=== PATIENT | male | born 1975 | race Caucasian/White ===

== ENCOUNTER 2021-06-17 16:50 | Inpatient (IN) | payer SELFPAY ==
[~2021-06-17] VITALS: Ht 190.5 cm; Wt 104.3 kg
[2021-06-17] MEDS ORDERED: ONDANSETRON HCL INJ 2MG/ML 2ML 2 MG/ML VIAL IV STA (17:10)
[2021-06-17] MEDS ORDERED: Morphine 4mg Syringe 4 MG/ML INJ IV STA (17:10)
[2021-06-17] MEDS ORDERED: SODIUM CHLORIDE 0.9% 1000ML 1,000 ML IV STA (17:10)
[2021-06-17] MEDS ORDERED: PIPERACILLIN/TAZOBACTAM 3.375 GM in SODIUM CHLORIDE 0.9% 50ML 50 ML IV STA (17:10)
[2021-06-17 17:21] LABS: BASOPHILS # (AUTO) 0.1 (0.0-0.1); BASOPHILS % 0.4 % (0.0-1.0); EOSINOPHILS # (AUTO) 0.1 (0.0-0.4); EOSINOPHILS % 0.3 % (0.0-6.0); HEMATOCRIT 44.8 % (38.2-49.6); HEMOGLOBIN 15.8 g/dL (14.0-18.0); LYMPHOCYTES # (AUTO) 1.9 (1.0-3.2); LYMPHOCYTES % 12.3 % (18.0-39.1); MEAN CORPUSCULAR HEMOGLOBIN 30.6 pg (28-32); MEAN CORPUSCULAR HGB CONC 35.3 g/dL (31-35); MEAN CORPUSCULAR VOLUME 86.8 fL (81-99); MONOCYTES # (AUTO) 1.4 (0.2-0.8); MONOCYTES % 9.1 % (4.4-11.3); NEUTROPHILS # (AUTO) 11.9 (2.1-6.9); NEUTROPHILS % 77.3 % (38.7-80.0); PLATELET COUNT 278 x10e3/uL (140-360); RED BLOOD COUNT 5.16 x10e6/uL (4.3-5.7); RED CELL DISTRIBUTION WIDTH 11.2 % (11.7-14.4)
[2021-06-17 17:40] LABS: INR 1.05; PROTHROMBIN TIME 14.5 seconds (11.9-14.5)
[2021-06-17 17:47] LABS: ALBUMIN 3.7 g/dL (3.5-5.0); ALBUMIN/GLOBULIN RATIO 0.9 (0.8-2.0); ANION GAP 17.2 mmol/L (8-16); CALCIUM 9.3 mg/dL (8.4-10.2); CREATININE, SERUM 1.03 mg/dL (0.72-1.25); POTASSIUM 4.2 mmol/L (3.5-5.1)
[2021-06-17] MEDS ORDERED: Vancomycin IV 1 GM in SODIUM CHLORIDE 0.9% 250ML 250 ML IV ONE (18:00)
[2021-06-17] MEDS ORDERED: HYDROCODONE/APAP 5MG-325MG TAB PO ONE (18:00)
[2021-06-17] MEDS ORDERED: Morphine 4mg Syringe 4 MG/ML INJ IV PRN (19:15)
[2021-06-17] MEDS ORDERED: DEXTROSE 50% SYRINGE 50 ML IV PRN (19:15)
[2021-06-17] MEDS ORDERED: ONDANSETRON HCL INJ 2MG/ML 2ML 2 MG/ML VIAL IV PRN (19:15)
[2021-06-17 23:00] VITALS: BP 142/85
[2021-06-17] MEDS: INSULIN REGULAR, HUMAN 100 UNIT/1 ML SQ SCH (23:21)
[2021-06-18] VITALS (7 sets, daily range): BP systolic 129–160; BP diastolic 64–95
[2021-06-18] MEDS: PIPERACILLIN/TAZOBACTAM 3.375 GM in SODIUM CHLORIDE 0.9% 50ML 50 ML IV SCH ×3 (01:02→17:00)
[2021-06-18] MEDS: Vancomycin IV 1 GM in SODIUM CHLORIDE 0.9% 250ML 250 ML IV SCH ×2 (07:00→18:53)
[2021-06-18 07:24] LABS: BASOPHILS % 0.4 % (0.0-1.0); EOSINOPHILS # (AUTO) 0.1 (0.0-0.4); EOSINOPHILS % 0.8 % (0.0-6.0); HEMATOCRIT 42.2 % (38.2-49.6); HEMOGLOBIN 14.8 g/dL (14.0-18.0); LYMPHOCYTES # (AUTO) 1.2 (1.0-3.2); LYMPHOCYTES % 11.3 % (18.0-39.1); MEAN CORPUSCULAR HGB CONC 35.1 g/dL (31-35); MEAN CORPUSCULAR VOLUME 88.5 fL (81-99); MONOCYTES # (AUTO) 1.2 (0.2-0.8); MONOCYTES % 11.2 % (4.4-11.3); NEUTROPHILS # (AUTO) 8.1 (2.1-6.9); NEUTROPHILS % 75.7 % (38.7-80.0); PLATELET COUNT 265 x10e3/uL (140-360); RED BLOOD COUNT 4.77 x10e6/uL (4.3-5.7); RED CELL DISTRIBUTION WIDTH 11.2 % (11.7-14.4)
[2021-06-18] MEDS: INSULIN REGULAR, HUMAN 100 UNIT/1 ML SQ SCH (07:30)
[2021-06-18 07:46] LABS: ALBUMIN 3.1 g/dL (3.5-5.0); ALBUMIN/GLOBULIN RATIO 0.8 (0.8-2.0); CALCIUM 8.6 mg/dL (8.4-10.2); CREATININE, SERUM 0.97 mg/dL (0.72-1.25)
[2021-06-18] MEDS ORDERED: DEXTROSE 50% SYRINGE 50 ML IV PRN (10:30)
[2021-06-18 10:58] LABS: CHOL/HDL RATIO 3.3 (3.9-4.7)
[2021-06-18] MEDS: INSULIN LISPRO 100 UNIT/1 ML 3ML VIAL SQ SCH ×3 (11:30→20:56)
[2021-06-18] MEDS: ACETAMINOPHEN 325 MG TAB PO PRN (14:39)
[2021-06-18] MEDS ORDERED: POVIDONE IODINE 10% 120 ML BTL EXT PRN (18:15)
[2021-06-18] MEDS: HYDROCODONE/APAP 5MG-325MG TAB PO PRN (22:30)
[2021-06-19] VITALS (8 sets, daily range): BP systolic 149–180; BP diastolic 79–93
[2021-06-19] MEDS: CLONIDINE HCL 0.1 MG TAB PO PRN ×2 (01:00→16:32)
[2021-06-19] MEDS: PIPERACILLIN/TAZOBACTAM 3.375 GM in SODIUM CHLORIDE 0.9% 50ML 50 ML IV SCH ×3 (01:00→16:57)
[2021-06-19 06:15] LABS: BASOPHILS # (AUTO) 0.1 (0.0-0.1); BASOPHILS % 0.5 % (0.0-1.0); EOSINOPHILS # (AUTO) 0.2 (0.0-0.4); EOSINOPHILS % 1.5 % (0.0-6.0); HEMATOCRIT 40.4 % (38.2-49.6); HEMOGLOBIN 14.1 g/dL (14.0-18.0); LYMPHOCYTES # (AUTO) 1.5 (1.0-3.2); LYMPHOCYTES % 13.9 % (18.0-39.1); MEAN CORPUSCULAR HEMOGLOBIN 30.7 pg (28-32); MEAN CORPUSCULAR HGB CONC 34.9 g/dL (31-35); MEAN CORPUSCULAR VOLUME 87.8 fL (81-99); MONOCYTES # (AUTO) 1.1 (0.2-0.8); MONOCYTES % 9.8 % (4.4-11.3); NEUTROPHILS # (AUTO) 7.9 (2.1-6.9); PLATELET COUNT 286 x10e3/uL (140-360); RED CELL DISTRIBUTION WIDTH 11.1 % (11.7-14.4)
[2021-06-19 06:31] LABS: ANION GAP 13.1 mmol/L (8-16); CALCIUM 8.5 mg/dL (8.4-10.2); CREATININE, SERUM 0.89 mg/dL (0.72-1.25); POTASSIUM 4.1 mmol/L (3.5-5.1)
[2021-06-19] MEDS: Vancomycin IV 1 GM in SODIUM CHLORIDE 0.9% 250ML 250 ML IV SCH ×2 (06:37→18:29)
[2021-06-19] MEDS: INSULIN LISPRO 100 UNIT/1 ML 3ML VIAL SQ SCH ×4 (07:30→20:45)
[2021-06-19] MEDS: INSULIN GLARGINE 100 UNITS/ML VIAL SQ SCH (20:45)
[2021-06-19] MEDS: ACETAMINOPHEN 325 MG TAB PO PRN (20:51)
[2021-06-20] VITALS (8 sets, daily range): BP systolic 132–175; BP diastolic 77–95
[2021-06-20] MEDS: PIPERACILLIN/TAZOBACTAM 3.375 GM in SODIUM CHLORIDE 0.9% 50ML 50 ML IV SCH ×3 (00:40→17:49)
[2021-06-20] MEDS ORDERED: Vancomycin IV 1 GM VIAL ONE (05:28)
[2021-06-20] MEDS: Vancomycin IV 1 GM in SODIUM CHLORIDE 0.9% 250ML 250 ML IV SCH ×2 (06:17→19:00)
[2021-06-20] MEDS: INSULIN LISPRO 100 UNIT/1 ML 3ML VIAL SQ SCH ×4 (07:30→21:00)
[2021-06-20] MEDS: HYDROCODONE/APAP 5MG-325MG TAB PO PRN (12:47)
[2021-06-20] MEDS ORDERED: ONDANSETRON HCL 4 MG ORAL DISINTEGRATING TAB PO PRN (19:45)
[2021-06-20] MEDS: INSULIN GLARGINE 100 UNITS/ML VIAL SQ SCH (21:00)
[2021-06-20] MEDS: CLONIDINE HCL 0.1 MG TAB PO PRN (21:06)
[2021-06-20] MEDS: ACETAMINOPHEN 325 MG TAB PO PRN (21:06)
[2021-06-21] MEDS: PIPERACILLIN/TAZOBACTAM 3.375 GM in SODIUM CHLORIDE 0.9% 50ML 50 ML IV SCH ×2 (00:41→09:47)
[2021-06-21 01:00] VITALS: BP 152/72
[2021-06-21 04:43] VITALS: BP 154/78
[2021-06-21] MEDS: INSULIN LISPRO 100 UNIT/1 ML 3ML VIAL SQ SCH ×2 (07:30→11:30)
[2021-06-21] MEDS: Vancomycin IV 1 GM in SODIUM CHLORIDE 0.9% 250ML 250 ML IV SCH (07:40)
[2021-06-21 08:33] VITALS: BP 151/77
[2021-06-21 09:00] VITALS: BP 151/77
[2021-06-21] MEDS ORDERED: CIPRO500 MG PO (11:43)
[2021-06-21] MEDS ORDERED: DOXYCYCLINE HY100 MG PO (11:43)
[2021-06-21 12:06] VITALS: BP 178/92
== END 2021-06-21 12:56 | disposition home or self-care (01) | DRG 638 ==
LOC: ER 18:11 → ERHOLD 19:04 → MED/SURG2 23:23
PROVIDERS: ADMIT Family Medicine; ATTEND Family Medicine
PROC: 0J9Q0ZZ Drainage of Right Foot Subcutaneous Tissue and Fascia, Open Approach (ICD-10-PCS; principal; 2021-06-20)
DX: E11.69 Type 2 diabetes mellitus with other specified complication (principal); M86.8X7 Other osteomyelitis, ankle and foot; L97.518 Non-pressure chronic ulcer of other part of right foot with other specified severity; Z79.899 Other long term (current) drug therapy; E78.5 Hyperlipidemia, unspecified; I10 Essential (primary) hypertension; Z20.822 Contact with and (suspected) exposure to COVID-19; F17.220 Nicotine dependence, chewing tobacco, uncomplicated; E11.621 Type 2 diabetes mellitus with foot ulcer; E11.65 Type 2 diabetes mellitus with hyperglycemia; F15.11 Other stimulant abuse, in remission
CPT/HCPCS: 36415; 80048; 80053; 80061; 80202; 82948; 83036; 83605; 85025; 85610; 85730; 87040; 87071; 87186; 87205; 93005; 94799; 99284; J2270; J2405; J2543; J3370; J7030; J7050; U0002

== ENCOUNTER 2021-09-19 01:51 | Inpatient (IN) | payer SELFPAY ==
[2021-09-19] VITALS (9 sets, daily range): BP systolic 137–169; BP diastolic 80–98
[~2021-09-19] VITALS: Ht 190.5 cm; Wt 104.3 kg
[~2021-09-19 01:51] MED LIST: CIPRO500 MG PO; DOXYCYCLINE HY100 MG PO
[2021-09-19] MEDS ORDERED: Vancomycin IV 1 GM in SODIUM CHLORIDE 0.9% 250ML 250 ML IV STA (02:09)
[2021-09-19] MEDS ORDERED: PIPERACILLIN/TAZOBACTAM 3.375 GM in SODIUM CHLORIDE 0.9% 50ML 50 ML IV STA (02:09)
[2021-09-19] MEDS ORDERED: SODIUM CHLORIDE 0.9% 1000ML 1,000 ML IV STA (02:09)
[2021-09-19] MEDS ORDERED: KETOROLAC TROMETHAMINE 30 MG/ML VIAL IV STA (02:12)
[2021-09-19 02:27] LABS: BASOPHILS # (AUTO) 0.1 (0.0-0.1); BASOPHILS % 0.5 % (0.0-1.0); EOSINOPHILS # (AUTO) 0.1 (0.0-0.4); EOSINOPHILS % 0.3 % (0.0-6.0); HEMATOCRIT 43.1 % (38.2-49.6); HEMOGLOBIN 15.6 g/dL (14.0-18.0); LYMPHOCYTES # (AUTO) 1.5 (1.0-3.2); LYMPHOCYTES % 8.6 % (18.0-39.1); MEAN CORPUSCULAR HEMOGLOBIN 31.4 pg (28-32); MEAN CORPUSCULAR HGB CONC 36.2 g/dL (31-35); MEAN CORPUSCULAR VOLUME 86.7 fL (81-99); MONOCYTES # (AUTO) 1.1 (0.2-0.8); MONOCYTES % 6.4 % (4.4-11.3); NEUTROPHILS # (AUTO) 14.5 (2.1-6.9); NEUTROPHILS % 83.9 % (38.7-80.0); PLATELET COUNT 405 x10e3/uL (140-360); RED BLOOD COUNT 4.97 x10e6/uL (4.3-5.7); RED CELL DISTRIBUTION WIDTH 11.6 % (11.7-14.4)
[2021-09-19 02:38] LABS: ALBUMIN 3.2 g/dL (3.5-5.0); ALBUMIN/GLOBULIN RATIO 0.7 (0.8-2.0); ANION GAP 15.8 mmol/L (8-16); CALCIUM 9.2 mg/dL (8.4-10.2); CREATININE, SERUM 1.2 mg/dL (0.72-1.25); POTASSIUM 3.8 mmol/L (3.5-5.1)
[2021-09-19] MEDS ORDERED: ACETAMINOPHEN 325 MG TAB PO ONE (03:00)
[2021-09-19] MEDS ORDERED: ONDANSETRON HCL INJ 2MG/ML 2ML 2 MG/ML VIAL IV PRN (03:30)
[2021-09-19] MEDS: SODIUM CHLORIDE 0.9% 1000ML 1,000 ML IV SCH ×2 (03:50→12:48)
[2021-09-19 09:36] LABS: CLARITY,URINE CLEAR (CLEAR); COLOR,URINE YELLOW (YELLOW); KETONES,URINE NEGATIVE (NEGATIVE); LEUKOCYTE ESTERASE ,URINE NEGATIVE (NEGATIVE); NITRITE,URINE NEGATIVE (NEGATIVE); PROTEIN,URINE DIPSTICK NEGATIVE (NEGATIVE); URINE UROBILINOGEN 0.2 mg/dL (0.2 - 1)
[2021-09-19] MEDS ORDERED: Vancomycin IV 500 MG in SODIUM CHLORIDE 0.9% 100 ML IV SCH (10:15)
[2021-09-19 10:19] LABS: BACTERIA,URINE FEW /HPF; EPITHELIAL CELLS,URINE FEW /LPF; RBC,URINE 0-5 /HPF (0-5); WBC,URINE (MAN) 0-5 /HPF (0-5)
[2021-09-19] MEDS ORDERED: DEXTROSE 50% SYRINGE 50 ML IV PRN (10:45)
[2021-09-19] MEDS ORDERED: Vancomycin IV 1 GM in SODIUM CHLORIDE 0.9% 250ML 250 ML IV SCH (11:00)
[2021-09-19] MEDS: INSULIN LISPRO 100 UNIT/1 ML 3ML VIAL SQ SCH ×3 (11:30→21:00)
[2021-09-19] MEDS ORDERED: GADOBENATE DIMEGLUMINE 1 ML IV ONE (13:43)
[2021-09-19] MEDS: CEFEPIME 1 GM in SODIUM CHLORIDE 0.9% 50ML 50 ML IV SCH ×2 (14:00→22:28)
[2021-09-19] MEDS: Vancomycin IV 1 GM in SODIUM CHLORIDE 0.9% 250ML 250 ML IV SCH (15:30)
[2021-09-19] MEDS: INSULIN GLARGINE 100 UNITS/ML VIAL SQ SCH (21:00)
[2021-09-20] MEDS: SODIUM CHLORIDE 0.9% 1000ML 1,000 ML IV SCH ×4 (01:42→18:30)
[2021-09-20] MEDS: Vancomycin IV 1 GM in SODIUM CHLORIDE 0.9% 250ML 250 ML IV SCH ×2 (03:27→15:13)
[2021-09-20 03:53] VITALS: BP 164/91
[2021-09-20] MEDS: KETOROLAC TROMETHAMINE 30 MG/ML VIAL IV PRN (04:31)
[2021-09-20 05:53] LABS: BASOPHILS # (AUTO) 0.1 (0.0-0.1); BASOPHILS % 0.4 % (0.0-1.0); EOSINOPHILS # (AUTO) 0.2 (0.0-0.4); EOSINOPHILS % 1.4 % (0.0-6.0); HEMATOCRIT 39.2 % (38.2-49.6); HEMOGLOBIN 14.1 g/dL (14.0-18.0); LYMPHOCYTES # (AUTO) 1.6 (1.0-3.2); LYMPHOCYTES % 12.1 % (18.0-39.1); MEAN CORPUSCULAR HEMOGLOBIN 31.1 pg (28-32); MEAN CORPUSCULAR VOLUME 86.5 fL (81-99); MONOCYTES % 7.1 % (4.4-11.3); NEUTROPHILS # (AUTO) 10.6 (2.1-6.9); NEUTROPHILS % 78.4 % (38.7-80.0); PLATELET COUNT 338 x10e3/uL (140-360); RED BLOOD COUNT 4.53 x10e6/uL (4.3-5.7); RED CELL DISTRIBUTION WIDTH 11.1 % (11.7-14.4)
[2021-09-20] MEDS: CEFEPIME 1 GM in SODIUM CHLORIDE 0.9% 50ML 50 ML IV SCH ×3 (06:00→21:01)
[2021-09-20 06:15] LABS: ANION GAP 12.7 mmol/L (8-16); CALCIUM 8.2 mg/dL (8.4-10.2); CREATININE, SERUM 0.84 mg/dL (0.72-1.25); POTASSIUM 3.7 mmol/L (3.5-5.1)
[2021-09-20] MEDS: DOCUSATE SODIUM 100 MG CAP PO SCH (08:31)
[2021-09-20] MEDS: SENNOSIDES 8.6 MG TAB PO SCH (08:31)
[2021-09-20 09:00] VITALS: BP 143/76
[2021-09-20] MEDS: LOSARTAN POTASSIUM 25 MG TAB PO SCH (10:17)
[2021-09-20] MEDS: INSULIN LISPRO 100 UNIT/1 ML 3ML VIAL SQ SCH ×4 (10:17→20:40)
[2021-09-20 12:22] VITALS: BP 141/77
[2021-09-20] MEDS: ENOXAPARIN SOD INJ 40 MG/0.4 ML SYR SC SCH (16:53)
[2021-09-20 17:07] VITALS: BP 153/86
[2021-09-20 20:00] VITALS: BP 152/87
[2021-09-20 21:00] VITALS: BP 152/87
[2021-09-20] MEDS: INSULIN GLARGINE 100 UNITS/ML VIAL SQ SCH (21:01)
[2021-09-21] VITALS (7 sets, daily range): BP systolic 147–166; BP diastolic 78–93
[2021-09-21] MEDS: KETOROLAC TROMETHAMINE 30 MG/ML VIAL IV PRN ×2 (02:44→17:36)
[2021-09-21 02:56] LABS: BASOPHILS # (AUTO) 0.1 (0.0-0.1); BASOPHILS % 0.5 % (0.0-1.0); EOSINOPHILS # (AUTO) 0.3 (0.0-0.4); EOSINOPHILS % 2.3 % (0.0-6.0); HEMATOCRIT 37.7 % (38.2-49.6); HEMOGLOBIN 13.9 g/dL (14.0-18.0); LYMPHOCYTES # (AUTO) 1.5 (1.0-3.2); LYMPHOCYTES % 13.4 % (18.0-39.1); MEAN CORPUSCULAR HEMOGLOBIN 31.6 pg (28-32); MEAN CORPUSCULAR HGB CONC 36.9 g/dL (31-35); MEAN CORPUSCULAR VOLUME 85.7 fL (81-99); MONOCYTES # (AUTO) 0.8 (0.2-0.8); MONOCYTES % 6.9 % (4.4-11.3); NEUTROPHILS # (AUTO) 8.6 (2.1-6.9); NEUTROPHILS % 76.5 % (38.7-80.0); PLATELET COUNT 359 x10e3/uL (140-360); RED CELL DISTRIBUTION WIDTH 11.2 % (11.7-14.4)
[2021-09-21] MEDS: Vancomycin IV 1 GM in SODIUM CHLORIDE 0.9% 250ML 250 ML IV SCH (03:10)
[2021-09-21] MEDS: SODIUM CHLORIDE 0.9% 1000ML 1,000 ML IV SCH ×3 (03:11→18:48)
[2021-09-21 03:16] LABS: ANION GAP 12.9 mmol/L (8-16); CALCIUM 8.2 mg/dL (8.4-10.2); CREATININE, SERUM 0.81 mg/dL (0.72-1.25); POTASSIUM 3.9 mmol/L (3.5-5.1)
[2021-09-21] MEDS: CEFEPIME 1 GM in SODIUM CHLORIDE 0.9% 50ML 50 ML IV SCH ×3 (05:17→22:15)
[2021-09-21] MEDS: HYDRALAZINE HCL 20 MG/ML VIAL IV PRN ×2 (06:21→13:13)
[2021-09-21] MEDS: INSULIN LISPRO 100 UNIT/1 ML 3ML VIAL SQ SCH ×4 (08:15→22:46)
[2021-09-21] MEDS: LOSARTAN POTASSIUM 25 MG TAB PO SCH (08:41)
[2021-09-21] MEDS: SENNOSIDES 8.6 MG TAB PO SCH (08:41)
[2021-09-21] MEDS: DOCUSATE SODIUM 100 MG CAP PO SCH (08:41)
[2021-09-21] MEDS ORDERED: Vancomycin IV 1 GM in SODIUM CHLORIDE 0.9% 250ML 250 ML IV SCH (15:00)
[2021-09-21] MEDS ORDERED: Vancomycin IV 1.5 GM in SODIUM CHLORIDE 0.9% 250ML 300 ML IV SCH (15:00)
[2021-09-21] MEDS: ENOXAPARIN SOD INJ 40 MG/0.4 ML SYR SC SCH (16:46)
[2021-09-21] MEDS: INSULIN GLARGINE 100 UNITS/ML VIAL SQ SCH (22:47)
[2021-09-22] VITALS (7 sets, daily range): BP systolic 137–177; BP diastolic 70–98
[2021-09-22] MEDS: KETOROLAC TROMETHAMINE 30 MG/ML VIAL IV PRN ×2 (02:00→13:29)
[2021-09-22] MEDS: SODIUM CHLORIDE 0.9% 1000ML 1,000 ML IV SCH ×3 (04:04→21:30)
[2021-09-22] MEDS: CEFEPIME 1 GM in SODIUM CHLORIDE 0.9% 50ML 50 ML IV SCH ×3 (05:30→21:31)
[2021-09-22 06:14] LABS: BASOPHILS # (AUTO) 0.1 (0.0-0.1); BASOPHILS % 0.5 % (0.0-1.0); EOSINOPHILS # (AUTO) 0.3 (0.0-0.4); EOSINOPHILS % 3.4 % (0.0-6.0); HEMATOCRIT 37.2 % (38.2-49.6); HEMOGLOBIN 13.4 g/dL (14.0-18.0); LYMPHOCYTES # (AUTO) 1.4 (1.0-3.2); LYMPHOCYTES % 15.3 % (18.0-39.1); MEAN CORPUSCULAR HEMOGLOBIN 30.9 pg (28-32); MEAN CORPUSCULAR VOLUME 85.7 fL (81-99); MONOCYTES # (AUTO) 0.9 (0.2-0.8); MONOCYTES % 9.1 % (4.4-11.3); NEUTROPHILS # (AUTO) 6.6 (2.1-6.9); NEUTROPHILS % 70.7 % (38.7-80.0); PLATELET COUNT 359 x10e3/uL (140-360); RED BLOOD COUNT 4.34 x10e6/uL (4.3-5.7)
[2021-09-22 06:42] LABS: ANION GAP 11.1 mmol/L (8-16); CALCIUM 8.5 mg/dL (8.4-10.2); CREATININE, SERUM 0.95 mg/dL (0.72-1.25); POTASSIUM 4.1 mmol/L (3.5-5.1)
[2021-09-22] MEDS: INSULIN LISPRO 100 UNIT/1 ML 3ML VIAL SQ SCH ×4 (07:30→21:31)
[2021-09-22] MEDS: SENNOSIDES 8.6 MG TAB PO SCH (09:00)
[2021-09-22] MEDS: LOSARTAN POTASSIUM 25 MG TAB PO SCH (09:00)
[2021-09-22] MEDS: DOCUSATE SODIUM 100 MG CAP PO SCH (09:00)
[2021-09-22] MEDS: Vancomycin IV 1.25 GM in SODIUM CHLORIDE 0.9% 250ML 250 ML IV SCH ×3 (12:00)
[2021-09-22] MEDS: ENOXAPARIN SOD INJ 40 MG/0.4 ML SYR SC SCH (17:00)
[2021-09-22] MEDS: INSULIN GLARGINE 100 UNITS/ML VIAL SQ SCH (21:31)
[2021-09-23] VITALS (9 sets, daily range): BP systolic 127–157; BP diastolic 71–93
[2021-09-23] MEDS: Vancomycin IV 1.25 GM in SODIUM CHLORIDE 0.9% 250ML 250 ML IV SCH ×2 (00:03→15:34)
[2021-09-23] MEDS: SODIUM CHLORIDE 0.9% 1000ML 1,000 ML IV SCH ×2 (03:32→22:30)
[2021-09-23] MEDS: CEFEPIME 1 GM in SODIUM CHLORIDE 0.9% 50ML 50 ML IV SCH ×3 (05:56→22:15)
[2021-09-23] MEDS: KETOROLAC TROMETHAMINE 30 MG/ML VIAL IV PRN (06:05)
[2021-09-23] MEDS: INSULIN LISPRO 100 UNIT/1 ML 3ML VIAL SQ SCH ×4 (08:58→21:00)
[2021-09-23] MEDS: DOCUSATE SODIUM 100 MG CAP PO SCH (09:00)
[2021-09-23] MEDS: SENNOSIDES 8.6 MG TAB PO SCH (09:00)
[2021-09-23] MEDS: LOSARTAN POTASSIUM 25 MG TAB PO SCH (09:00)
[2021-09-23] MEDS ORDERED: BUPIVACAINE HCL 0.5% INJ 30 ML VIAL INJ ONE (09:03)
[2021-09-23] MEDS ORDERED: DEXAMETHASONE SOD PHOS INJ 4 MG/ML SDV ONE (09:04)
[2021-09-23] MEDS ORDERED: ACETAMINOPHEN 1000 MG/100 ML 100 ML IV ONE (10:37)
[2021-09-23] MEDS ORDERED: FAMOTIDINE 20 MG/2 ML VIAL IV ONE (10:37)
[2021-09-23] MEDS ORDERED: POVIDONE IODINE 0.05% 0.05 % ML PO ONE (11:59)
[2021-09-23] MEDS ORDERED: LIDOCAINE HCL 2% LOCAL INJ 5 ML SDV VIAL INJ ONE (11:59)
[2021-09-23] MEDS ORDERED: PROPOFOL IV EMULSION 10 MG/ML 20 ML VIAL ONE (11:59)
[2021-09-23] MEDS ORDERED: SEVOFLURANE INHAL SOLN 250 ML PEN BTL ONE (11:59)
[2021-09-23] MEDS ORDERED: ONDANSETRON HCL INJ 2MG/ML 2ML 2 MG/ML VIAL ONE (11:59)
[2021-09-23] MEDS ORDERED: EPHEDRINE SULFATE INJ 50 MG/ML VIAL ONE (11:59)
[2021-09-23] MEDS ORDERED: MIDAZOLAM HCL 2 MG/2 ML VIAL ONE (13:54)
[2021-09-23] MEDS ORDERED: FENTANYL CITRATE/PF 100MCG/2 ML INJ ONE (13:54)
[2021-09-23] MEDS: ENOXAPARIN SOD INJ 40 MG/0.4 ML SYR SC SCH (17:00)
[2021-09-23] MEDS: INSULIN GLARGINE 100 UNITS/ML VIAL SQ SCH (21:00)
[2021-09-24] VITALS (7 sets, daily range): BP systolic 152–168; BP diastolic 64–95
[2021-09-24] MEDS: Vancomycin IV 1.25 GM in SODIUM CHLORIDE 0.9% 250ML 250 ML IV SCH ×2 (02:30→14:30)
[2021-09-24] MEDS: SODIUM CHLORIDE 0.9% 1000ML 1,000 ML IV SCH ×2 (03:30→05:00)
[2021-09-24] MEDS: CEFEPIME 1 GM in SODIUM CHLORIDE 0.9% 50ML 50 ML IV SCH ×3 (06:28→21:19)
[2021-09-24] MEDS: INSULIN LISPRO 100 UNIT/1 ML 3ML VIAL SQ SCH ×5 (07:30→21:00)
[2021-09-24] MEDS: DOCUSATE SODIUM 100 MG CAP PO SCH (09:00)
[2021-09-24] MEDS: SENNOSIDES 8.6 MG TAB PO SCH (09:00)
[2021-09-24] MEDS: LOSARTAN POTASSIUM 25 MG TAB PO SCH (09:00)
[2021-09-24] MEDS ORDERED: ACETAMINOPHEN 325 MG TAB PO PRN (13:15)
[2021-09-24] MEDS: ENOXAPARIN SOD INJ 40 MG/0.4 ML SYR SC SCH (17:00)
[2021-09-24] MEDS: INSULIN GLARGINE 100 UNITS/ML VIAL SQ SCH (21:00)
[2021-09-24] MEDS: HYDROCODONE/APAP 5MG-325MG TAB PO PRN (22:37)
[2021-09-25] VITALS (7 sets, daily range): BP systolic 151–167; BP diastolic 78–97
[2021-09-25] MEDS: Vancomycin IV 1.25 GM in SODIUM CHLORIDE 0.9% 250ML 250 ML IV SCH ×2 (02:30→15:02)
[2021-09-25] MEDS: CEFEPIME 1 GM in SODIUM CHLORIDE 0.9% 50ML 50 ML IV SCH ×3 (06:00→21:28)
[2021-09-25] MEDS: INSULIN LISPRO 100 UNIT/1 ML 3ML VIAL SQ SCH ×7 (07:30→21:00)
[2021-09-25] MEDS: DOCUSATE SODIUM 100 MG CAP PO SCH (09:53)
[2021-09-25] MEDS: SENNOSIDES 8.6 MG TAB PO SCH (09:54)
[2021-09-25] MEDS: LOSARTAN POTASSIUM 25 MG TAB PO SCH (09:54)
[2021-09-25] MEDS: ENOXAPARIN SOD INJ 40 MG/0.4 ML SYR SC SCH (16:56)
[2021-09-25] MEDS: INSULIN GLARGINE 100 UNITS/ML VIAL SQ SCH (21:00)
[2021-09-26] VITALS: BP 159/92
[2021-09-26] MEDS: HYDROCODONE/APAP 5MG-325MG TAB PO PRN (01:00)
[2021-09-26] MEDS: Vancomycin IV 1.25 GM in SODIUM CHLORIDE 0.9% 250ML 250 ML IV SCH (02:23)
[2021-09-26 04:00] VITALS: BP 150/79
[2021-09-26] MEDS: CEFEPIME 1 GM in SODIUM CHLORIDE 0.9% 50ML 50 ML IV SCH (05:57)
[2021-09-26 07:57] VITALS: BP 167/92
[2021-09-26 07:59] VITALS: BP 167/92
[2021-09-26] MEDS: DOCUSATE SODIUM 100 MG CAP PO SCH (08:56)
[2021-09-26] MEDS: SENNOSIDES 8.6 MG TAB PO SCH (08:57)
[2021-09-26] MEDS: LOSARTAN POTASSIUM 25 MG TAB PO SCH (08:57)
[2021-09-26] MEDS: INSULIN LISPRO 100 UNIT/1 ML 3ML VIAL SQ SCH ×2 (09:00)
[2021-09-26 10:33] LABS: BASOPHILS # (AUTO) 0.1 (0.0-0.1); BASOPHILS % 1.1 % (0.0-1.0); EOSINOPHILS # (AUTO) 0.3 (0.0-0.4); EOSINOPHILS % 3.4 % (0.0-6.0); HEMATOCRIT 41.5 % (38.2-49.6); HEMOGLOBIN 14.7 g/dL (14.0-18.0); LYMPHOCYTES # (AUTO) 1.3 (1.0-3.2); LYMPHOCYTES % 16.9 % (18.0-39.1); MEAN CORPUSCULAR HEMOGLOBIN 30.9 pg (28-32); MEAN CORPUSCULAR HGB CONC 35.4 g/dL (31-35); MEAN CORPUSCULAR VOLUME 87.4 fL (81-99); MONOCYTES # (AUTO) 0.7 (0.2-0.8); MONOCYTES % 9.3 % (4.4-11.3); NEUTROPHILS # (AUTO) 5.3 (2.1-6.9); NEUTROPHILS % 66.5 % (38.7-80.0); PLATELET COUNT 485 x10e3/uL (140-360); RED BLOOD COUNT 4.75 x10e6/uL (4.3-5.7); RED CELL DISTRIBUTION WIDTH 11.3 % (11.7-14.4)
[2021-09-26 10:59] VITALS: BP 153/89
[2021-09-26 11:33] LABS: ALBUMIN 3.1 g/dL (3.5-5.0); ALBUMIN/GLOBULIN RATIO 0.7 (0.8-2.0); ANION GAP 11.2 mmol/L (8-16); CALCIUM 8.8 mg/dL (8.4-10.2); CREATININE, SERUM 0.92 mg/dL (0.72-1.25); POTASSIUM 4.2 mmol/L (3.5-5.1)
[2021-09-26] MEDS ORDERED: LANTUS 3ML100 UNITS/ SC (11:51)
[2021-09-26] MEDS ORDERED: METFORMIN HCL500 MG PO (11:51)
[2021-09-26] MEDS ORDERED: LOSARTAN POTASS25 MG PO (11:51)
[2021-09-26] MEDS ORDERED: DOXYCYCLINE HY100 MG PO (11:51)
== END 2021-09-26 13:26 | disposition home or self-care (01) | DRG 854 ==
LOC: ER 01:59 → ERHOLD 03:25 → MED/SURG3 04:49
PROVIDERS: ADMIT Internal Medicine; ATTEND Internal Medicine
PROC: 0Y6T0Z0 Detachment at Right 3rd Toe, Complete, Open Approach (ICD-10-PCS; 2021-09-23)
PROC: 0JBQ0ZZ Excision of Right Foot Subcutaneous Tissue and Fascia, Open Approach (ICD-10-PCS; 2021-09-23)
PROC: 0JDR0ZZ Extraction of Left Foot Subcutaneous Tissue and Fascia, Open Approach (ICD-10-PCS; 2021-09-23)
PROC: 0Y6R0Z0 Detachment at Right 2nd Toe, Complete, Open Approach (ICD-10-PCS; principal; 2021-09-23 10:00)
PROC: 2W4 Placement, Anatomical Regions, Packing (ICD-10-PCS; 2021-09-25)
DX: A41.9 Sepsis, unspecified organism (principal); L03.115 Cellulitis of right lower limb; M86.672 Other chronic osteomyelitis, left ankle and foot; M86.671 Other chronic osteomyelitis, right ankle and foot; L02.611 Cutaneous abscess of right foot; E11.52 Type 2 diabetes mellitus with diabetic peripheral angiopathy with gangrene; I96 Gangrene, not elsewhere classified; E11.621 Type 2 diabetes mellitus with foot ulcer; L97.511 Non-pressure chronic ulcer of other part of right foot limited to breakdown of skin; E11.65 Type 2 diabetes mellitus with hyperglycemia; E11.69 Type 2 diabetes mellitus with other specified complication; Z79.84 Long term (current) use of oral hypoglycemic drugs; F15.10 Other stimulant abuse, uncomplicated; L97.529 Non-pressure chronic ulcer of other part of left foot with unspecified severity; L97.514 Non-pressure chronic ulcer of other part of right foot with necrosis of bone; I10 Essential (primary) hypertension; E11.42 Type 2 diabetes mellitus with diabetic polyneuropathy; B95.62 Methicillin resistant Staphylococcus aureus infection as the cause of diseases classified elsewhere; T36.8X6A Underdosing of other systemic antibiotics, initial encounter; T36.4X6A Underdosing of tetracyclines, initial encounter; Z91.120 Patient's intentional underdosing of medication regimen due to financial hardship; B35.1 Tinea unguium
CPT/HCPCS: 36415; 76000; 80048; 80053; 80202; 81001; 82948; 83036; 83605; 83735; 85025; 85651; 86141; 87040; 87071; 87075; 87086; 87186; 87205; 88304; 88305; 88311; 93005; 96360; 96361; 96365; 96372; 97139; 99251; 99284; J0360; J0692; J1100; J1650; J1815; J1885; J2001; J2250; J2405; J3010; J3370; J7030; J7050; U0002

== ENCOUNTER 2021-12-28 00:05 | Inpatient (IN) | payer SELFPAY ==
[~2021-12-28] VITALS: Ht 190.5 cm; Wt 99.8 kg
[~2021-12-28 00:05] MED LIST changes: +LANTUS 3ML100 UNITS/ SC; +LOSARTAN POTASS25 MG PO; +METFORMIN HCL500 MG PO
[2021-12-28] MEDS ORDERED: SODIUM CHLORIDE 0.9% 1000ML 1,000 ML IV SCH (00:30)
[2021-12-28] MEDS ORDERED: LACTATED RINGER'S 1,000 ML INJ ONE (00:30)
[2021-12-28 00:53] LABS: BASOPHILS # (AUTO) 0.1 (0.0-0.1); BASOPHILS % 0.6 % (0.0-1.0); EOSINOPHILS # (AUTO) 0.2 (0.0-0.4); EOSINOPHILS % 1.6 % (0.0-6.0); HEMATOCRIT 36.2 % (38.2-49.6); HEMOGLOBIN 12.9 g/dL (14.0-18.0); LYMPHOCYTES # (AUTO) 1.9 (1.0-3.2); LYMPHOCYTES % 15.6 % (18.0-39.1); MEAN CORPUSCULAR HEMOGLOBIN 31.2 pg (28-32); MEAN CORPUSCULAR HGB CONC 35.6 g/dL (31-35); MEAN CORPUSCULAR VOLUME 87.4 fL (81-99); MONOCYTES # (AUTO) 1.1 (0.2-0.8); NEUTROPHILS # (AUTO) 8.9 (2.1-6.9); NEUTROPHILS % 72.7 % (38.7-80.0); PLATELET COUNT 435 x10e3/uL (140-360); RED BLOOD COUNT 4.14 x10e6/uL (4.3-5.7); RED CELL DISTRIBUTION WIDTH 11.6 % (11.7-14.4)
[2021-12-28 01:12] LABS: ALBUMIN 3.6 g/dL (3.5-5.0); ALBUMIN/GLOBULIN RATIO 0.9 (0.8-2.0); ANION GAP 15.3 mmol/L (8-16); CALCIUM 9.1 mg/dL (8.4-10.2); CREATININE, SERUM 1.08 mg/dL (0.72-1.25); POTASSIUM 4.3 mmol/L (3.5-5.1)
[2021-12-28] MEDS ORDERED: PIPERACILLIN/TAZOBACTAM 4.5 GM in SODIUM CHLORIDE 0.9% 100 ML IV STA (01:16)
[2021-12-28] MEDS ORDERED: Vancomycin IV 1 GM in SODIUM CHLORIDE 0.9% 250ML 250 ML IV STA (01:16)
[2021-12-28] MEDS ORDERED: ONDANSETRON HCL INJ 2MG/ML 2ML 2 MG/ML VIAL IV PRN (02:00)
[2021-12-28] MEDS ORDERED: Morphine 2mg Syringe 2 MG/ML SYR IV PRN (02:00)
[2021-12-28] MEDS: SODIUM CHLORIDE 0.9% 1000ML 1,000 ML IV SCH ×3 (02:15→21:42)
[2021-12-28] MEDS ORDERED: DEXTROSE 50% SYRINGE 50 ML IV PRN ×2 (03:30→15:30)
[2021-12-28] MEDS ORDERED: HALOPERIDOL LACTATE 5 MG/ML VIAL ONE (04:15)
[2021-12-28] MEDS: INSULIN REGULAR, HUMAN 100 UNIT/1 ML SQ SCH ×4 (07:30→21:47)
[2021-12-28 08:05] LABS: CLARITY,URINE CLEAR (CLEAR); COLOR,URINE YELLOW (YELLOW); KETONES,URINE NEGATIVE (NEGATIVE); LEUKOCYTE ESTERASE ,URINE NEGATIVE (NEGATIVE); NITRITE,URINE NEGATIVE (NEGATIVE); PROTEIN,URINE DIPSTICK NEGATIVE (NEGATIVE); URINE UROBILINOGEN 0.2 mg/dL (0.2 - 1)
[2021-12-28 08:06] LABS: AMPHETAMINES SCREEN,URINE POSITIVE (NEGATIVE); BENZODIAZEPINES SCREEN,URINE NEGATIVE (NEGATIVE); PHENCYCLIDINE SCREEN,URINE NEGATIVE (NEGATIVE)
[2021-12-28 12:26] VITALS: BP 149/91
[2021-12-28 12:40] VITALS: BP 149/91
[2021-12-28] MEDS: Vancomycin IV 1 GM in SODIUM CHLORIDE 0.9% 250ML 250 ML IV SCH ×2 (14:18→21:00)
[2021-12-28 16:09] VITALS: BP 160/84
[2021-12-28] MEDS ORDERED: INSULIN LISPRO 100 UNIT/1 ML 3ML VIAL SQ SCH (16:30)
[2021-12-28] MEDS ORDERED: INSULIN REGULAR, HUMAN 100 UNIT/1 ML SQ SCH (16:30)
[2021-12-28] MEDS: INSULIN LISPRO 100 UNIT/1 ML 3ML VIAL SQ SCH (18:16)
[2021-12-28 20:00] VITALS: BP 132/90
[2021-12-28] MEDS ORDERED: INSULIN GLARGINE 100 UNITS/ML VIAL SQ SCH (21:00)
[2021-12-28] MEDS: INSULIN GLARGINE 100 UNITS/ML VIAL SQ SCH (21:48)
[2021-12-29] VITALS: BP 142/76
[2021-12-29] MEDS: SODIUM CHLORIDE 0.9% 1000ML 1,000 ML IV SCH ×2 (00:10→11:20)
[2021-12-29 07:02] LABS: BASOPHILS # (AUTO) 0.1 (0.0-0.1); BASOPHILS % 0.6 % (0.0-1.0); EOSINOPHILS # (AUTO) 0.4 (0.0-0.4); EOSINOPHILS % 3.8 % (0.0-6.0); HEMATOCRIT 33.2 % (38.2-49.6); HEMOGLOBIN 11.5 g/dL (14.0-18.0); LYMPHOCYTES # (AUTO) 1.7 (1.0-3.2); LYMPHOCYTES % 18.7 % (18.0-39.1); MEAN CORPUSCULAR HEMOGLOBIN 30.6 pg (28-32); MEAN CORPUSCULAR HGB CONC 34.6 g/dL (31-35); MEAN CORPUSCULAR VOLUME 88.3 fL (81-99); MONOCYTES # (AUTO) 0.8 (0.2-0.8); NEUTROPHILS # (AUTO) 6.3 (2.1-6.9); NEUTROPHILS % 67.4 % (38.7-80.0); PLATELET COUNT 359 x10e3/uL (140-360); RED BLOOD COUNT 3.76 x10e6/uL (4.3-5.7); RED CELL DISTRIBUTION WIDTH 11.7 % (11.7-14.4)
[2021-12-29 07:25] LABS: CALCIUM 8.4 mg/dL (8.4-10.2); CREATININE, SERUM 0.88 mg/dL (0.72-1.25)
[2021-12-29 07:40] VITALS: BP 152/88
[2021-12-29 08:32] VITALS: BP 152/88
[2021-12-29] MEDS: Vancomycin IV 1 GM in SODIUM CHLORIDE 0.9% 250ML 250 ML IV SCH ×2 (08:54→22:06)
[2021-12-29] MEDS: INSULIN GLARGINE 100 UNITS/ML VIAL SQ SCH ×2 (08:57→21:00)
[2021-12-29] MEDS: INSULIN REGULAR, HUMAN 100 UNIT/1 ML SQ SCH ×4 (08:59→21:00)
[2021-12-29] MEDS: INSULIN LISPRO 100 UNIT/1 ML 3ML VIAL SQ SCH ×3 (09:00→16:30)
[2021-12-29 11:48] VITALS: BP 146/82
[2021-12-29] MEDS ORDERED: CALCIUM GLUC 1 G/50 ML NACL 50 ML IV ONE (12:30)
[2021-12-29] MEDS ORDERED: POVIDONE IODINE 0.05% 0.05 % ML PO ONE (15:18)
[2021-12-29] MEDS ORDERED: SEVOFLURANE INHAL SOLN 250 ML PEN BTL ONE (15:18)
[2021-12-29] MEDS ORDERED: ONDANSETRON HCL INJ 2MG/ML 2ML 2 MG/ML VIAL ONE (15:18)
[2021-12-29] MEDS ORDERED: LIDOCAINE HCL 2% LOCAL INJ 5 ML SDV VIAL INJ ONE (15:18)
[2021-12-29] MEDS ORDERED: PROPOFOL IV EMULSION 10 MG/ML 20 ML VIAL ONE (15:18)
[2021-12-29] MEDS ORDERED: DEXAMETHASONE SOD PHOS INJ 4 MG/ML SDV ONE (15:18)
[2021-12-29] MEDS ORDERED: KETOROLAC TROMETHAMINE 30 MG/ML VIAL ONE (15:18)
[2021-12-29 16:09] VITALS: BP 161/91
[2021-12-29 20:00] VITALS: BP 176/91
[2021-12-30] VITALS: BP 154/87
[2021-12-30] MEDS: SODIUM CHLORIDE 0.9% 1000ML 1,000 ML IV SCH ×5 (01:21→23:58)
[2021-12-30 06:40] LABS: BASOPHILS % 0.4 % (0.0-1.0); EOSINOPHILS # (AUTO) 0.3 (0.0-0.4); EOSINOPHILS % 3.5 % (0.0-6.0); HEMATOCRIT 32.5 % (38.2-49.6); HEMOGLOBIN 11.2 g/dL (14.0-18.0); LYMPHOCYTES # (AUTO) 1.5 (1.0-3.2); LYMPHOCYTES % 16.5 % (18.0-39.1); MEAN CORPUSCULAR HEMOGLOBIN 30.5 pg (28-32); MEAN CORPUSCULAR HGB CONC 34.5 g/dL (31-35); MEAN CORPUSCULAR VOLUME 88.6 fL (81-99); MONOCYTES # (AUTO) 0.7 (0.2-0.8); MONOCYTES % 8.1 % (4.4-11.3); NEUTROPHILS # (AUTO) 6.4 (2.1-6.9); NEUTROPHILS % 71.1 % (38.7-80.0); PLATELET COUNT 383 x10e3/uL (140-360); RED BLOOD COUNT 3.67 x10e6/uL (4.3-5.7); RED CELL DISTRIBUTION WIDTH 11.7 % (11.7-14.4)
[2021-12-30 07:11] LABS: ANION GAP 12.6 mmol/L (8-16); CALCIUM 8.5 mg/dL (8.4-10.2); CREATININE, SERUM 0.87 mg/dL (0.72-1.25); POTASSIUM 3.6 mmol/L (3.5-5.1)
[2021-12-30] MEDS: INSULIN REGULAR, HUMAN 100 UNIT/1 ML SQ SCH ×4 (07:30→20:51)
[2021-12-30] MEDS: INSULIN LISPRO 100 UNIT/1 ML 3ML VIAL SQ SCH ×3 (07:30→16:56)
[2021-12-30 08:33] VITALS: BP 150/79
[2021-12-30 08:37] VITALS: BP 150/79
[2021-12-30] MEDS: Vancomycin IV 1 GM in SODIUM CHLORIDE 0.9% 250ML 250 ML IV SCH ×2 (08:56→20:52)
[2021-12-30] MEDS: CALCIUM CARBONATE 500 MG CHEWABLE TABS PO SCH (09:00)
[2021-12-30] MEDS: POTASSIUM CHLORIDE 10MEQ EA PO SCH (09:00)
[2021-12-30] MEDS: INSULIN GLARGINE 100 UNITS/ML VIAL SQ SCH ×2 (09:04→20:48)
[2021-12-30] MEDS ORDERED: PIPERACILLIN/TAZOBACTAM 3.375 GM VIAL ONE (12:04)
[2021-12-30 13:55] VITALS: BP 112/71
[2021-12-30] MEDS ORDERED: ACETAMINOPHEN 325 MG TAB PO PRN (16:15)
[2021-12-30] MEDS ORDERED: FENTANYL CITRATE/PF 100MCG/2 ML INJ ONE (17:12)
[2021-12-30] MEDS ORDERED: MIDAZOLAM HCL 2 MG/2 ML VIAL ONE (17:12)
[2021-12-30 23:05] VITALS: BP 155/82
[2021-12-31] VITALS (7 sets, daily range): BP systolic 156–172; BP diastolic 84–90
[2021-12-31 07:11] LABS: BASOPHILS % 0.3 % (0.0-1.0); EOSINOPHILS # (AUTO) 0.1 (0.0-0.4); EOSINOPHILS % 0.5 % (0.0-6.0); HEMATOCRIT 32.8 % (38.2-49.6); HEMOGLOBIN 11.4 g/dL (14.0-18.0); LYMPHOCYTES # (AUTO) 1.8 (1.0-3.2); LYMPHOCYTES % 15.5 % (18.0-39.1); MEAN CORPUSCULAR HEMOGLOBIN 30.3 pg (28-32); MEAN CORPUSCULAR HGB CONC 34.8 g/dL (31-35); MEAN CORPUSCULAR VOLUME 87.2 fL (81-99); MONOCYTES % 8.2 % (4.4-11.3); NEUTROPHILS # (AUTO) 8.7 (2.1-6.9); NEUTROPHILS % 74.9 % (38.7-80.0); PLATELET COUNT 407 x10e3/uL (140-360); RED BLOOD COUNT 3.76 x10e6/uL (4.3-5.7); RED CELL DISTRIBUTION WIDTH 11.5 % (11.7-14.4)
[2021-12-31 07:40] LABS: ALBUMIN 2.6 g/dL (3.5-5.0); ALBUMIN/GLOBULIN RATIO 0.6 (0.8-2.0); ANION GAP 13.7 mmol/L (8-16); CALCIUM 8.4 mg/dL (8.4-10.2); CREATININE, SERUM 1.01 mg/dL (0.72-1.25); POTASSIUM 3.7 mmol/L (3.5-5.1)
[2021-12-31] MEDS: INSULIN REGULAR, HUMAN 100 UNIT/1 ML SQ SCH ×4 (08:00→21:07)
[2021-12-31] MEDS: INSULIN LISPRO 100 UNIT/1 ML 3ML VIAL SQ SCH ×3 (08:00→17:00)
[2021-12-31] MEDS: INSULIN GLARGINE 100 UNITS/ML VIAL SQ SCH ×2 (09:30→21:12)
[2021-12-31] MEDS: Vancomycin IV 1 GM in SODIUM CHLORIDE 0.9% 250ML 250 ML IV SCH ×2 (09:45→21:14)
[2021-12-31] MEDS: POTASSIUM CHLORIDE 10MEQ EA PO SCH (09:46)
[2021-12-31] MEDS: CALCIUM CARBONATE 500 MG CHEWABLE TABS PO SCH (09:46)
[2022-01-01] VITALS (7 sets, daily range): BP systolic 152–171; BP diastolic 72–91
[2022-01-01 07:13] LABS: BASOPHILS # (AUTO) 0.1 (0.0-0.1); BASOPHILS % 0.7 % (0.0-1.0); EOSINOPHILS # (AUTO) 0.3 (0.0-0.4); EOSINOPHILS % 3.4 % (0.0-6.0); HEMATOCRIT 31.9 % (38.2-49.6); HEMOGLOBIN 11.1 g/dL (14.0-18.0); LYMPHOCYTES # (AUTO) 1.8 (1.0-3.2); LYMPHOCYTES % 18.7 % (18.0-39.1); MEAN CORPUSCULAR HEMOGLOBIN 30.6 pg (28-32); MEAN CORPUSCULAR HGB CONC 34.8 g/dL (31-35); MEAN CORPUSCULAR VOLUME 87.9 fL (81-99); MONOCYTES # (AUTO) 0.8 (0.2-0.8); MONOCYTES % 8.3 % (4.4-11.3); NEUTROPHILS # (AUTO) 6.5 (2.1-6.9); NEUTROPHILS % 67.8 % (38.7-80.0); PLATELET COUNT 402 x10e3/uL (140-360); RED BLOOD COUNT 3.63 x10e6/uL (4.3-5.7); RED CELL DISTRIBUTION WIDTH 11.6 % (11.7-14.4)
[2022-01-01 07:41] LABS: ALBUMIN 2.6 g/dL (3.5-5.0); ALBUMIN/GLOBULIN RATIO 0.7 (0.8-2.0); ANION GAP 12.4 mmol/L (8-16); CREATININE, SERUM 0.81 mg/dL (0.72-1.25); POTASSIUM 3.4 mmol/L (3.5-5.1)
[2022-01-01] MEDS: POTASSIUM CHLORIDE 10MEQ EA PO SCH (08:43)
[2022-01-01] MEDS: CALCIUM CARBONATE 500 MG CHEWABLE TABS PO SCH (08:43)
[2022-01-01] MEDS: Vancomycin IV 1 GM in SODIUM CHLORIDE 0.9% 250ML 250 ML IV SCH ×2 (09:00→21:09)
[2022-01-01] MEDS: INSULIN REGULAR, HUMAN 100 UNIT/1 ML SQ SCH ×4 (09:56→16:42)
[2022-01-01] MEDS: INSULIN LISPRO 100 UNIT/1 ML 3ML VIAL SQ SCH ×3 (09:57→16:44)
[2022-01-01] MEDS: INSULIN GLARGINE 100 UNITS/ML VIAL SQ SCH ×2 (09:57→21:11)
[2022-01-01] MEDS: OLMESARTAN 20 MG TAB PO SCH ×2 (12:38→12:42)
[2022-01-01] MEDS ORDERED: POTASSIUM CHLORIDE 10MEQ EA PO ONE (13:00)
[2022-01-02] VITALS (11 sets, daily range): BP systolic 138–166; BP diastolic 68–90
[2022-01-02 06:07] LABS: BASOPHILS # (AUTO) 0.1 (0.0-0.1); BASOPHILS % 0.9 % (0.0-1.0); EOSINOPHILS # (AUTO) 0.4 (0.0-0.4); EOSINOPHILS % 3.8 % (0.0-6.0); HEMATOCRIT 33.9 % (38.2-49.6); HEMOGLOBIN 11.7 g/dL (14.0-18.0); LYMPHOCYTES # (AUTO) 1.9 (1.0-3.2); LYMPHOCYTES % 20.7 % (18.0-39.1); MEAN CORPUSCULAR HEMOGLOBIN 30.5 pg (28-32); MEAN CORPUSCULAR HGB CONC 34.5 g/dL (31-35); MEAN CORPUSCULAR VOLUME 88.5 fL (81-99); MONOCYTES # (AUTO) 0.8 (0.2-0.8); NEUTROPHILS % 63.9 % (38.7-80.0); PLATELET COUNT 447 x10e3/uL (140-360); RED BLOOD COUNT 3.83 x10e6/uL (4.3-5.7); RED CELL DISTRIBUTION WIDTH 11.7 % (11.7-14.4)
[2022-01-02 06:33] LABS: ANION GAP 15.9 mmol/L (8-16); CALCIUM 8.4 mg/dL (8.4-10.2); CREATININE, SERUM 0.88 mg/dL (0.72-1.25); POTASSIUM 3.9 mmol/L (3.5-5.1)
[2022-01-02] MEDS: Vancomycin IV 1 GM in SODIUM CHLORIDE 0.9% 250ML 250 ML IV SCH ×2 (09:37→21:03)
[2022-01-02] MEDS: POTASSIUM CHLORIDE 10MEQ EA PO SCH (09:39)
[2022-01-02] MEDS: CALCIUM CARBONATE 500 MG CHEWABLE TABS PO SCH (09:39)
[2022-01-02] MEDS: INSULIN LISPRO 100 UNIT/1 ML 3ML VIAL SQ SCH ×3 (09:49→17:49)
[2022-01-02] MEDS: INSULIN REGULAR, HUMAN 100 UNIT/1 ML SQ SCH ×4 (09:49→21:01)
[2022-01-02] MEDS: INSULIN GLARGINE 100 UNITS/ML VIAL SQ SCH ×2 (09:49→21:00)
[2022-01-02] MEDS: OLMESARTAN 20 MG TAB PO SCH (09:54)
[2022-01-03] VITALS (8 sets, daily range): BP systolic 151–167; BP diastolic 73–90
[2022-01-03] MEDS: TRAMADOL HCL 50 MG TAB PO PRN ×2 (00:08→21:53)
[2022-01-03] MEDS: INSULIN LISPRO 100 UNIT/1 ML 3ML VIAL SQ SCH ×3 (07:59→17:41)
[2022-01-03] MEDS: INSULIN REGULAR, HUMAN 100 UNIT/1 ML SQ SCH ×4 (08:00→22:00)
[2022-01-03] MEDS: POTASSIUM CHLORIDE 10MEQ EA PO SCH (09:00)
[2022-01-03] MEDS: OLMESARTAN 20 MG TAB PO SCH ×2 (09:03→09:58)
[2022-01-03] MEDS: CALCIUM CARBONATE 500 MG CHEWABLE TABS PO SCH (09:05)
[2022-01-03] MEDS: Vancomycin IV 1 GM in SODIUM CHLORIDE 0.9% 250ML 250 ML IV SCH ×2 (09:06→21:52)
[2022-01-03] MEDS: INSULIN GLARGINE 100 UNITS/ML VIAL SQ SCH ×2 (09:16→21:00)
[2022-01-04] VITALS: BP 155/76
[2022-01-04 04:35] VITALS: BP 132/64
[2022-01-04 07:52] VITALS: BP 136/82
[2022-01-04 08:01] VITALS: BP 136/82
[2022-01-04] MEDS: Vancomycin IV 1 GM in SODIUM CHLORIDE 0.9% 250ML 250 ML IV SCH (08:52)
[2022-01-04] MEDS: INSULIN LISPRO 100 UNIT/1 ML 3ML VIAL SQ SCH ×3 (08:53→16:11)
[2022-01-04] MEDS: POTASSIUM CHLORIDE 10MEQ EA PO SCH (08:54)
[2022-01-04] MEDS: INSULIN REGULAR, HUMAN 100 UNIT/1 ML SQ SCH ×3 (08:54→16:19)
[2022-01-04] MEDS: CALCIUM CARBONATE 500 MG CHEWABLE TABS PO SCH (08:54)
[2022-01-04] MEDS: INSULIN GLARGINE 100 UNITS/ML VIAL SQ SCH (08:55)
[2022-01-04] MEDS: OLMESARTAN 20 MG TAB PO SCH (09:54)
[2022-01-04 11:43] VITALS: BP 150/86
[2022-01-04] MEDS ORDERED: ceftin OD (12:14)
[2022-01-04] MEDS ORDERED: MELOXICAM7.5 MG PO (12:14)
[2022-01-04] MEDS ORDERED: doxycycline PO (12:15)
[2022-01-04] MEDS ORDERED: METFORMIN HCL500 MG PO (12:17)
[2022-01-04] MEDS ORDERED: GLIMEPIRIDE2 MG PO (12:18)
[2022-01-04 15:53] VITALS: BP 130/78
[2022-01-04] MEDS ORDERED: GLIMEPIRIDE 2 MG TAB PO SCH (17:00)
[2022-01-04] MEDS ORDERED: METFORMIN HCL 500 MG TAB PO SCH (17:00)
== END 2022-01-04 17:58 | disposition home or self-care (01) | DRG 617 ==
LOC: ER 00:18 → ERHOLD 02:00 → MED/SURG3 12:18
PROC: 0Y6M0ZB Detachment at Right Foot, Partial 2nd Ray, Open Approach (ICD-10-PCS; 2021-12-30)
PROC: 0Y6M0ZC Detachment at Right Foot, Partial 3rd Ray, Open Approach (ICD-10-PCS; 2021-12-30)
PROC: 0Y6M0ZD Detachment at Right Foot, Partial 4th Ray, Open Approach (ICD-10-PCS; 2021-12-30)
PROC: 0Y6M0ZF Detachment at Right Foot, Partial 5th Ray, Open Approach (ICD-10-PCS; 2021-12-30)
PROC: 0HXMXZZ Transfer Right Foot Skin, External Approach (ICD-10-PCS; 2021-12-30)
PROC: 0L8N3ZZ Division of Right Lower Leg Tendon, Percutaneous Approach (ICD-10-PCS; 2021-12-30)
PROC: 0Y6M0Z9 Detachment at Right Foot, Partial 1st Ray, Open Approach (ICD-10-PCS; principal; 2021-12-30 11:39)
DX: E11.69 Type 2 diabetes mellitus with other specified complication (principal); E11.52 Type 2 diabetes mellitus with diabetic peripheral angiopathy with gangrene; I96 Gangrene, not elsewhere classified; L03.115 Cellulitis of right lower limb; M86.671 Other chronic osteomyelitis, right ankle and foot; E11.621 Type 2 diabetes mellitus with foot ulcer; Z79.899 Other long term (current) drug therapy; M67.01 Short Achilles tendon (acquired), right ankle; D63.1 Anemia in chronic kidney disease; E11.22 Type 2 diabetes mellitus with diabetic chronic kidney disease; I13.10 Hypertensive heart and chronic kidney disease without heart failure, with stage 1 through stage 4 chronic kidney disease, or unspecified chronic kidney disease; N18.9 Chronic kidney disease, unspecified; Z59.00 Homelessness unspecified; E11.65 Type 2 diabetes mellitus with hyperglycemia; E11.628 Type 2 diabetes mellitus with other skin complications; B95.2 Enterococcus as the cause of diseases classified elsewhere; B95.62 Methicillin resistant Staphylococcus aureus infection as the cause of diseases classified elsewhere; Z20.822 Contact with and (suspected) exposure to COVID-19
CPT/HCPCS: 36415; 71045; 76000; 80048; 80053; 80202; 80307; 81001; 82948; 83036; 83605; 85025; 87040; 87071; 87075; 87186; 87205; 88304; 88307; 88311; 94799; 96372; 99251; 99284; J1100; J1630; J1815; J1817; J1885; J2001; J2250; J2270; J2405; J2543; J3010; J3370; J7030; J7050; J7121

== ENCOUNTER → 2022-01-06 | Outpatient (CLI) | payer OTHER ==
[~2022-01-06] MED LIST changes: +GLIMEPIRIDE2 MG PO; +MELOXICAM7.5 MG PO; +TRYPSIN/BALSAM PERU/CASTOR OIL ONE; +ceftin OD; +doxycycline PO
== END ==
LOC: WCC 14:45
PROVIDERS: ATTEND Podiatrist Foot Surgery
DX: T81.89XA Other complications of procedures, not elsewhere classified, initial encounter (principal); T87.89 Other complications of amputation stump; Y83.5 Amputation of limb(s) as the cause of abnormal reaction of the patient, or of later complication, without mention of misadventure at the time of the procedure; E11.21 Type 2 diabetes mellitus with diabetic nephropathy; E11.65 Type 2 diabetes mellitus with hyperglycemia; I10 Essential (primary) hypertension; B96.89 Other specified bacterial agents as the cause of diseases classified elsewhere
CPT/HCPCS: 36415; 82948

== ENCOUNTER → 2022-01-09 | Outpatient (CLI) | payer OTHER ==
[~2022-01-09] MED LIST changes: -TRYPSIN/BALSAM PERU/CASTOR OIL ONE
== END ==
LOC: WCC 14:39
PROVIDERS: ATTEND Podiatrist Foot Surgery
DX: T81.89XA Other complications of procedures, not elsewhere classified, initial encounter (principal); T87.89 Other complications of amputation stump; Y83.5 Amputation of limb(s) as the cause of abnormal reaction of the patient, or of later complication, without mention of misadventure at the time of the procedure; E11.21 Type 2 diabetes mellitus with diabetic nephropathy; E11.65 Type 2 diabetes mellitus with hyperglycemia; I10 Essential (primary) hypertension; B96.89 Other specified bacterial agents as the cause of diseases classified elsewhere

== ENCOUNTER → 2022-01-11 | Outpatient (CLI) | payer OTHER | LOC: WCC 13:08 | PROVIDERS: ATTEND Podiatrist Foot Surgery | DX: T81.89XA Other complications of procedures, not elsewhere classified, initial encounter (principal); T87.89 Other complications of amputation stump; Y83.8 Other surgical procedures as the cause of abnormal reaction of the patient, or of later complication, without mention of misadventure at the time of the procedure; E11.621 Type 2 diabetes mellitus with foot ulcer; E11.65 Type 2 diabetes mellitus with hyperglycemia; I10 Essential (primary) hypertension; B96.89 Other specified bacterial agents as the cause of diseases classified elsewhere ==

== ENCOUNTER → 2022-01-13 | Outpatient (CLI) | payer SELFPAY | LOC: WCC 14:35 | PROVIDERS: ATTEND Podiatrist Foot Surgery | DX: T81.89XA Other complications of procedures, not elsewhere classified, initial encounter (principal); Y83.5 Amputation of limb(s) as the cause of abnormal reaction of the patient, or of later complication, without mention of misadventure at the time of the procedure; T87.89 Other complications of amputation stump; E11.621 Type 2 diabetes mellitus with foot ulcer; E11.65 Type 2 diabetes mellitus with hyperglycemia; I10 Essential (primary) hypertension; B96.89 Other specified bacterial agents as the cause of diseases classified elsewhere ==

== ENCOUNTER → 2022-01-18 | Outpatient (CLI) | payer SELFPAY | LOC: WCC 10:09 | PROVIDERS: ATTEND Podiatrist Foot Surgery | DX: T81.89XA Other complications of procedures, not elsewhere classified, initial encounter (principal); T87.89 Other complications of amputation stump; B96.89 Other specified bacterial agents as the cause of diseases classified elsewhere; Y83.5 Amputation of limb(s) as the cause of abnormal reaction of the patient, or of later complication, without mention of misadventure at the time of the procedure; I10 Essential (primary) hypertension; E11.621 Type 2 diabetes mellitus with foot ulcer; E11.65 Type 2 diabetes mellitus with hyperglycemia ==

== ENCOUNTER → 2022-01-20 | Outpatient (CLI) | payer OTHER | LOC: WCC 15:00 | PROVIDERS: ATTEND Podiatrist Foot Surgery | DX: T81.89XA Other complications of procedures, not elsewhere classified, initial encounter (principal); T87.89 Other complications of amputation stump; Y83.5 Amputation of limb(s) as the cause of abnormal reaction of the patient, or of later complication, without mention of misadventure at the time of the procedure; E11.621 Type 2 diabetes mellitus with foot ulcer; E11.65 Type 2 diabetes mellitus with hyperglycemia; I10 Essential (primary) hypertension; B96.89 Other specified bacterial agents as the cause of diseases classified elsewhere ==

== ENCOUNTER 2022-05-18 07:41 | Emergency (ER) | payer SELFPAY ==
[~2022-05-18] VITALS: Ht 190.5 cm; Wt 99.8 kg
[2022-05-18 08:28] VITALS: BP 179/80
== END 2022-05-18 08:18 | disposition home or self-care (01) ==
LOC: ER 07:42
DX: E11.621 Type 2 diabetes mellitus with foot ulcer (principal); L97.519 Non-pressure chronic ulcer of other part of right foot with unspecified severity; L03.031 Cellulitis of right toe; I10 Essential (primary) hypertension
CPT/HCPCS: 99283